=== PATIENT | female | born 1950 | race Caucasian/White ===

== ENCOUNTER → 2016-11-02 | Outpatient (CLI) | payer OTHER, BC | END | disposition home or self-care (01) | LOC: NUC 06:36 | DX: F45.8 Other somatoform disorders (principal) | CPT/HCPCS: 78264; A9541 ==

== ENCOUNTER → 2017-08-02 | Outpatient (CLI) | payer OTHER, BC | END | disposition home or self-care (01) | DX: R13.10 Dysphagia, unspecified (principal); K21.9 Gastro-esophageal reflux disease without esophagitis | CPT/HCPCS: 92611 GN; G8996 GN; G8997 GN; G8998 GN ==